=== PATIENT | male | born 1970 | race Asian ===

== ENCOUNTER 2017-01-02 17:37 | Emergency (ER) | payer OTHER ==
[~2017-01-02] VITALS: Ht 157.5 cm; Wt 56.0 kg
[~2017-01-02 17:37] MED LIST: ATOR20TA65 PO; CALC667C PO; HYDR-902 PO; POTA-57 PO; SENN-53 PO; SPIR25TA PO; ZOLP5TAB PO; [UNRECOGNIZED DRUG - CODE] PO
[2017-01-02 17:44] VITALS: Ht 157.5 cm; Wt 56.0 kg
[2017-01-02 19:58] LABS: ADD SCAN DIFF NO
[2017-01-02 20:06] LABS: ABNORMAL IP MESSAGE 1; HEMOGLOBIN 14.3 g/dl (14.0-18.0); MEAN CORPUSCULAR HEMOGLOBIN 27.4 pg (29.0-33.0); MEAN CORPUSCULAR HGB CONC 32.5 g/dl (32.0-37.0); MEAN CORPUSCULAR VOLUME 84.3 fl (82.0-101.0); MEAN PLATELET VOLUME 9.2 fl (7.4-10.4); PLATELET COUNT 379 10^3/UL (140-415); RED BLOOD COUNT 5.22 10^6/ul (4.70-6.10); RED CELL DISTRIBUTION WIDTH 14.4 % (11.5-14.5)
[2017-01-02 20:20] LABS: INR 0.87; PARTIAL THROMBOPLASTIN TIME 34.4 Sec (25.0-35.0); PROTIME 11.8 Sec (12.2-14.2); PT RATIO 0.9
[2017-01-02 20:24] LABS: ANION GAP 8 (8-16); BLOOD UREA NITROGEN 53 mg/dl (7-20); CALCIUM 7.8 mg/dl (8.4-10.2); CARBON DIOXIDE 26 mmol/L (21-31); CHLORIDE 103 mmol/L (97-110); CREATININE 2.95 mg/dl (0.61-1.24); GLUCOSE 92 mg/dl (70-220); POTASSIUM 3.9 mmol/L (3.5-5.1); SODIUM 133 mmol/L (135-144)
--- NOTE | 2017-01-02 20:25 | RADRPT ---
PROCEDURE: XR Chest. CLINICAL INDICATION: 46-year-old male with chest pain. TECHNIQUE: Single frontal view of the chest was obtained. COMPARISON: None FINDINGS: The soft tissues are normal. The bony elements are normal. The heart, cardiomediastinal silhouette and hilar structures are normal. The pulmonary vasculature is normal. There is a left-sided aorta. The lungs are clear. The costophrenic angles are normal. IMPRESSION: 1. Normal chest x-ray. RPTAT:AAJJ Physician Isai Date Time Electronically viewed and signed by Physician Isai on 01/02/2017 20:25 ELAINA/
[2017-01-02 20:33] LABS: B-TYPE NATRIURETIC PEPTIDE 169 PG/ML (0-125)
[2017-01-02 20:39] LABS: TROPONIN-I < 0.012 ng/ml (0.00-0.12)
[2017-01-02 20:52] LABS: EOSINOPHILS # 1.7 10^3/ul (0.0-0.5); LYMPHOCYTES # 2.3 10^3/ul (0.8-2.9); MONOCYTE # 0.6 10^3/ul (0.3-0.9); NEUTROPHIL # 5.4 10^3/ul (1.6-7.5)
[2017-01-02] MEDS ORDERED: RANI150T5 PO (20:58)
[2017-01-02] MEDS ORDERED: DOCU100C26 PO (20:59)
[2017-01-02] MEDS ORDERED: MAGN400O4 PO (20:59)
[2017-01-02] MEDS ORDERED: FUROSEMIDE 40 MG INJ IV ONE (21:00)
--- NOTE | 2017-01-02 21:14 | ERD ---
ER Documentation Chief Complaint Date/Time DATE: 01/02/17 TIME: 21:13 Chief Complaint SOB TODAY, LEG SWELLING X 2 WEEKS HPI This is a 46-year-old male with a history of renal insufficiency who presents to the emergency room for evaluation of swelling in his legs. The patient states that his swelling has progressively gotten worse over the past 2 weeks. He states that he also has mild shortness of breath which is worse when he lays flat. He denies any chest pain. The patient came to the emergency room for further evaluation. ROS All systems reviewed and are negative except as per history of present illness. Medications Home Meds Reported Medications Magnesium Hydroxide* (Milk Of Magnesia*) 400 Mg/5 Ml Oral.susp, 30 ML PO BID Y for PRN, ML 01/02/17 Docusate Sodium* (Doc-Q-Lace*) 100 Mg Capsule, 100 MG PO DAILY, CAP 01/02/17 Ranitidine Hcl* (Ranitidine Hcl*) 150 Mg Tablet, 150 MG PO Q12, #60 TAB 01/02/17 Discontinued Scripts Zolpidem Tartrate* (Ambien*) 5 Mg Tablet, 5 MG PO HS Y for INSOMNIA, #15 TAB Prov:LISA HATFIELDC 06/29/16 Hydrocodone/Acetaminophen ([place] 10-325 Tablet) 1 Each Tablet, 1 TAB PO Q6H Y for PAIN, #20 TAB Prov:LISA HATFIELD PA-C 06/29/16 Sennosides* (Senna Lax*) 8.6 Mg Tablet, 1 TAB PO DAILY, #60 TAB Prov:EDWINA PILLAI 06/03/16 Spironolactone* (Aldactone*) 25 Mg Tablet, 25 MG PO DAILY for 30 Days, TAB Prov:REGIDOEDWINA Aguirre 06/03/16 Potassium Chloride* (Klor-Con*) 20 Meq Tabsr, 20 MEQ PO DAILY for 30 Days, TAB Prov:REGEDWINA DANIELLE 06/03/16 Calcium Acetate* (Calcium Acetate*) 667 Mg Capsule, 667 MG PO WITH MEALS for 30 Days, CAP Prov:REGIDOREDWINA 06/03/16 Atorvastatin Calcium (Atorvastatin Calcium) 20 Mg Tablet, 20 MG PO HS for 30 Days, TAB Prov:REGEDWINA DANIELLE 12/5/16 Metolazone* (Zaroxolyn*) 2.5 Mg Tab, 2.5 MG PO DAILY for 30 Days, TAB Prov:EDWINA PILLAI 06/03/16 Allergies Allergies: Coded Allergies: No Known Allergy (Unverified , 01/02/17) PMhx/Soc History of Surgery: No Anesthesia Reaction: No Hx Neurological Disorder: No Hx Respiratory Disorders: No Hx Cardiac Disorders: No Hx Psychiatric Problems: No Hx Miscellaneous Medical Probl: Yes (CHRONIC RENAL FAILURE) Hx Alcohol Use: No Hx Substance Use: No Hx Tobacco Use: No Smoking Status: Never smoker Physical Exam Vitals Vital Signs Date Time Temp Pulse Resp B/P Pulse Ox O2 Delivery O2 Flow Rate FiO2 01/02/17 17:44 98.1 96 20 143/99 99 Physical Exam INITIAL VITAL SIGNS: Reviewed by me GENERAL: The patient is well developed and appropriate for usual state of health in no apparent distress HEENT: Pupils equal, round, and reactive to light. EOMI. There is no scleral icterus. NECK: C-spine is soft and supple, there is no meningismus. There is no cervical lymphadenopathy. LUNGS: Clear to auscultation bilaterally. There are no rales, wheezes or rhonchi. HEART: Regular rate and rhythm, no murmurs, clicks, rubs or gallops. ABDOMEN: Soft, non-tender, non-distended. There are bowel sounds in all four quadrants. No rebound or guarding. EXTREMITIES: 2+ pitting edema to bilateral lower extremities NEUROLOGICAL: The patient moves all four extremities with 5/5 strength. Cranial nerves II - XII are intact. Normal gait. Alert and oriented SKIN: There is no apparent rash or petechiae. HEME/LYMPHATIC: There is no evidence of excessive bruising or lymphedema. PSYCHIATRIC: The patient does not appear anxious or depressed. Result Diagram: 01/02/17195101/02/171951 Results 24 hrs Laboratory Tests Test 01/02/17 19:52 White Blood Count 10.010^3/ul Red Blood Count 5.2210^6/ul Hemoglobin 14.3g/dl Hematocrit 44.0% Mean Corpuscular Volume 84.3fl Mean Corpuscular Hemoglobin 27.4pg Mean Corpuscular Hemoglobin Concent 32.5g/dl Red Cell Distribution Width 14.4% Platelet Count 33689^3/UL Mean Platelet Volume 9.2fl Neutrophils % 54.0% Lymphocytes % 23.0% Monocytes % 6.0% Eosinophils % 17.0% Neutrophils # 5.410^3/ul Lymphocytes # 2.310^3/ul Monocytes # 0.610^3/ul Eosinophils # 1.710^3/ul Prothrombin Time 11.8Sec Prothrombin Time Ratio 0.9 INR International Normalized Ratio 0.87 Activated Partial Thromboplast Time 34.4Sec Sodium Level 133mmol/L Potassium Level 3.9mmol/L Chloride Level 103mmol/L Carbon Dioxide Level 26mmol/L Anion Gap 8 Blood Urea Nitrogen 53mg/dl Creatinine 2.95mg/dl Glucose Level 92mg/dl Calcium Level 7.8mg/dl Troponin I < 0.012ng/ml B-Type Natriuretic Peptide 169PG/ML Current Medications Medications (Trade) Dose Ordered Sig/Nate Route PRN Reason Start Time Stop Time Status Last Admin Dose Admin Furosemide (Lasix) 40 mg ONCE ONCE IV 01/02/17 21:00 01/02/17 21:01 DC 01/02/17 20:55 Procedures/MDM EKG: Rate/Rhythm: [Normal Sinus Rhythm] QRS, ST, T-waves: [No changes consistent w/ acute ischemia] Impression: [No evidence of ischemia or arrhythmia] Chest X-ray 1V Interpreted by me: Soft Tissue: No acute abnormalities Bones: No acute abnormalities Mediastinum/Cardiac Silhouette/Lungs: [No acute abnormalities] This 46-year-old male presents to the emergency room for evaluation of swelling in the bilateral lower extremities. When I evaluated this patient I did note 2 + pitting edema. The patient does have a history of renal insufficiency. He is on Lasix medication. I did obtain lab work including a chest x-ray which is clear. This patient has no respiratory distress at this time. He was given 40 mg of Lasix IV. The patient will be discharged at this time with a prescription for 20 more grams of Lasix to take daily and to follow-up with his primary care physician. Departure Diagnosis: Primary Impression: Peripheral edema Additional Impression: Renal insufficiency Condition: Stable SANTA RUIZ DO Jan 02, 2017 21:14
[2017-01-02] MEDS ORDERED: FURO-110 PO (21:15)
[2017-01-02 21:25] VITALS: BP 130/100; PULSE 83; RESP 18; TEMP 98
== END 2017-01-02 21:37 | disposition home or self-care (01) ==
LOC: E/R 17:37
DX: R60.0 Localized edema (principal); N18.9 Chronic kidney disease, unspecified
CPT/HCPCS: 36415; 71010; 80048; 83880; 84484; 85025; 85610; 85730; 93005; 96374; J1940; Z7502

== ENCOUNTER 2017-01-07 01:40 | Inpatient (IN) | payer OTHER ==
[~2017-01-07] VITALS: Ht 162.6 cm; Wt 61.4 kg
[2017-01-07] VITALS (10 sets, daily range): BP systolic 113–136; BP diastolic 88–97; PULSE 75–86; RESP 16–19; Ht 162.6 cm; Wt 61.4 kg
[~2017-01-07 01:40] MED LIST changes: -ATOR20TA65 PO; -CALC667C PO; +DOCU100C26 PO; +FURO-110 PO; -HYDR-902 PO; +MAGN400O4 PO; -POTA-57 PO; +RANI150T5 PO; -SENN-53 PO; -SPIR25TA PO; -ZOLP5TAB PO; -[UNRECOGNIZED DRUG - CODE] PO
[2017-01-07] MEDS ORDERED: MAGNESIUM HYDROXIDE 30ML CUP PO PRN (05:30)
[2017-01-07] MEDS ORDERED: FUROSEMIDE 20 MG TAB PO SCH (06:00)
[2017-01-07] MEDS ORDERED: ACETAMINOPHEN 325 MG TAB PO PRN (07:00)
[2017-01-07 07:56] LABS: ADD SCAN DIFF NO
[2017-01-07 08:11] LABS: ABNORMAL IP MESSAGE 1; BASOPHIL # 0.1 10^3/ul (0.0-0.1); BASOPHILS % 0.6 % (0.0-2.0); EOSINOPHILS # 2.5 10^3/ul (0.0-0.5); EOSINOPHILS % 26.9 % (0.0-7.0); HEMATOCRIT 40.9 % (42.0-52.0); HEMOGLOBIN 13.1 g/dl (14.0-18.0); LYMPHOCYTES # 2.4 10^3/ul (0.8-2.9); LYMPHOCYTES % 25.2 % (15.0-51.0); MEAN CORPUSCULAR HEMOGLOBIN 27.2 pg (29.0-33.0); MEAN CORPUSCULAR VOLUME 84.9 fl (82.0-101.0); MEAN PLATELET VOLUME 9.2 fl (7.4-10.4); MONOCYTE # 0.5 10^3/ul (0.3-0.9); MONOCYTES % 5.1 % (0.0-11.0); NEUTROPHIL # 3.9 10^3/ul (1.6-7.5); NEUTROPHILS % 41.9 % (39.0-77.0); PLATELET COUNT 377 10^3/UL (140-415); RED BLOOD COUNT 4.82 10^6/ul (4.70-6.10); RED CELL DISTRIBUTION WIDTH 14.8 % (11.5-14.5); WHITE BLOOD COUNT 9.4 10^3/ul (4.8-10.8)
[2017-01-07 08:27] LABS: ALBUMIN 2.1 g/dl (3.3-4.9); CALCIUM 7.8 mg/dl (8.4-10.2); CREATININE 3.01 mg/dl (0.61-1.24); PHOSPHORUS 6.2 mg/dl (2.5-4.9); POTASSIUM 3.2 mmol/L (3.5-5.1)
[2017-01-07 08:28] LABS: INR 0.86; PROTIME 11.7 Sec (12.2-14.2); PT RATIO 0.9
[2017-01-07 08:29] LABS: PARTIAL THROMBOPLASTIN TIME 34.7 Sec (25.0-35.0)
[2017-01-07] MEDS: FUROSEMIDE 40 MG INJ IV SCH ×2 (08:44→18:43)
[2017-01-07] MEDS: RANITIDINE 150 MG TAB PO SCH ×2 (08:44→20:36)
[2017-01-07] MEDS: DOCUSATE SODIUM 100 MG CAP PO SCH (08:44)
--- NOTE | 2017-01-07 09:11 | RADRPT ---
PROCEDURE: Retroperitoneal ultrasound. CLINICAL INDICATION: Acute renal failure TECHNIQUE: Burnette scale and color doppler ultrasound images of the retroperitoneum, kidneys, urinary bladder COMPARISON: Abdominal ultrasound 06/29/2016 FINDINGS: Right kidney 11.4 cm in length. Right renal cortical thickness is preserved. Left kidney 13.1 cm in length. Left renal cortical thickness is preserved. Echogenicity is upper limits of normal bilaterally. No hydronephrosis. Previously seen right sided calculus is not identified on the current examination. 4.4 cm cyst in the upper pole of the left kidney. Bladder: No focal lesions. Partially visualized ascites and left pleural effusion. IMPRESSION: No evidence of hydronephrosis. 4.4 cm left renal cyst, otherwise normal appearance of both kidneys. RPTAT: AADD .Chuck Robins MD, MD Date Time Electronically viewed and signed by .Chuck Robins MD, on 01/07/2017 09:10 .B/
--- NOTE | 2017-01-07 12:28 | QN ---
Documentation Comment H&P dict a/p 1. renal: nephrtoic syndrome with worsening edema, now symptomatic, plan renal biopsy, diuresis DEACON BARRERA MD Jan 07, 2017 12:27
[2017-01-08] VITALS (12 sets, daily range): BP systolic 115–140; BP diastolic 85–102; PULSE 75–87; RESP 18–20
[2017-01-08] MEDS: FUROSEMIDE 40 MG INJ IV SCH (05:50)
[2017-01-08 07:55] LABS: ADD SCAN DIFF NO
[2017-01-08 07:58] LABS: ABNORMAL IP MESSAGE 1; BASOPHIL # 0.1 10^3/ul (0.0-0.1); BASOPHILS % 0.5 % (0.0-2.0); EOSINOPHILS # 2.3 10^3/ul (0.0-0.5); EOSINOPHILS % 24.3 % (0.0-7.0); HEMATOCRIT 43.8 % (42.0-52.0); HEMOGLOBIN 14.1 g/dl (14.0-18.0); LYMPHOCYTES # 2.5 10^3/ul (0.8-2.9); LYMPHOCYTES % 25.9 % (15.0-51.0); MEAN CORPUSCULAR HEMOGLOBIN 27.3 pg (29.0-33.0); MEAN CORPUSCULAR HGB CONC 32.2 g/dl (32.0-37.0); MEAN CORPUSCULAR VOLUME 84.7 fl (82.0-101.0); MONOCYTE # 0.4 10^3/ul (0.3-0.9); NEUTROPHIL # 4.3 10^3/ul (1.6-7.5); PLATELET COUNT 398 10^3/UL (140-415); RED BLOOD COUNT 5.17 10^6/ul (4.70-6.10); RED CELL DISTRIBUTION WIDTH 14.9 % (11.5-14.5); WHITE BLOOD COUNT 9.5 10^3/ul (4.8-10.8)
[2017-01-08 08:23] LABS: CALCIUM 7.8 mg/dl (8.4-10.2); CREATININE 3.1 mg/dl (0.61-1.24); POTASSIUM 3.8 mmol/L (3.5-5.1)
[2017-01-08] MEDS: RANITIDINE 150 MG TAB PO SCH (08:28)
[2017-01-08] MEDS: DOCUSATE SODIUM 100 MG CAP PO SCH (08:28)
[2017-01-08] MEDS ORDERED: ENOXAPARIN 30 MG/0.3 ML SYG SC SCH (09:00)
[2017-01-08] MEDS ORDERED: NACL 0.9% 3 ML SYG IV SCH (12:00)
[2017-01-08] MEDS ORDERED: BISACODYL (EC) 5 MG TAB PO PRN (12:00)
[2017-01-08] MEDS ORDERED: hydrALAzine 20 MG INJ IV PRN (12:00)
[2017-01-08] MEDS ORDERED: ONDANSETRON 4 MG INJ IV PRN (12:00)
[2017-01-08] MEDS ORDERED: morphine 2 MG INJ IV PRN (12:00)
--- NOTE | 2017-01-08 12:13 | PN ---
Date/Time of Note Date/Time of Note DATE: 01/08/17 TIME: 11:51 Assessment/Plan VTE Prophylaxis VTE Prophylaxis Intervention: LMWH Lines/Catheters IV [facility]ter Type (from [facility] Saline Lock Urinary Cath still in place: No Assessment/Plan Assessment/Plan 46-year-old male: 1. Acute on chronic renal failure according to family members, patient has a history of renal insufficiency at least. Nephrology consult pending, renal ultrasound mostly unremarkable Arnold catheter insertion for strict I's and O's as the patient has minimal urine output and complaints of lower abdomen distention Urine analysis and urine studies pending, uric acid level and total CK pending For now I will hold Lasix and await for nephrology evaluation and recommendation Blood pressure is stable 2. Hyponatremia: Improving likely related to hypervolemia and kidney disease. Follow-up nephrology recommendations Prophylaxis: SCDs for DVT prophylaxis, discontinue chemical prophylaxis for now since there is potential kidney biopsy pending, Pepcid for GI prophylaxis Disposition: Nephrology consult pending, okay to downgrade to medical surgical bed Subjective 24 Hr Interval Summary Free Text/Dictation Patient is primarily Arabic speaking, he reports abdominal fullness, Arnold catheter will be ordered Also complains of mild headache. Exam/Review of Systems Vital Signs Vitals Vital Signs Date Time Temp Pulse Resp B/P Pulse Ox O2 Delivery O2 Flow Rate FiO2 01/08/17 11:34 98.4 86 18 115/85 94 Intake and Output 01/07/17 01/07/17 01/08/17 15:00 23:00 07:00 Intake Total 400 ml 480 ml Balance 400 ml 480 ml Exam Constitutional: alert, oriented, well developed Respiratory: clear to auscultation, normal air movement Cardiovascular: nl pulses, regular rate and rhythm Gastrointestinal: other (Mild distention), soft Genitourinary - Male: other (Minimal urine output) Musculoskeletal: swelling (Lower extremity bilateral) Extremities: pitting pedal edema Neurological: 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 II-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 intact, nl mental status, nl speech, nl strength Results Result Diagram: 01/08/17 0712 01/08/17 0712 Results 24 hrs Laboratory Tests Test 01/08/17 07:12 White Blood Count 9.5 Red Blood Count 5.17 Hemoglobin 14.1 Hematocrit 43.8 Mean Corpuscular Volume 84.7 Mean Corpuscular Hemoglobin 27.3 L Mean Corpuscular Hemoglobin Concent 32.2 Red Cell Distribution Width 14.9 H Platelet Count 398 Mean Platelet Volume 9.0 Neutrophils % 45.0 Lymphocytes % 25.9 Monocytes % 4.0 Eosinophils % 24.3 H Basophils % 0.5 Nucleated Red Blood Cells % 0.0 Neutrophils # 4.3 Lymphocytes # 2.5 Monocytes # 0.4 Eosinophils # 2.3 H Basophils # 0.1 Nucleated Red Blood Cells # 0.0 Sodium Level 129 L Potassium Level 3.8 Chloride Level 105 Carbon Dioxide Level 24 Anion Gap 4 L Blood Urea Nitrogen 61 H Creatinine 3.10 H Glucose Level 89 Calcium Level 7.8 L Medications Medications Current Medications Docusate Sodium (Colace) 100 mg DAILY PO Last administered on 01/08/17 08:28; Admin Dose 100 MG; Start 01/07/17 at 09:00 Magnesium Hydroxide (Milk Of Mag) 30 ml BID PRN PO PRN; Start 01/07/17 at 05:30 Ranitidine HCl (Zantac) 150 mg Q12 PO Last administered on 01/08/17 08:28; Admin Dose 150 MG; Start 01/07/17 at 09:00 Acetaminophen (Tylenol Tab) 650 mg Q4H PRN PO PAIN AND OR ELEVATED TEMP; Start 01/07/17 at 07:00 Enoxaparin Sodium (Lovenox) 30 mg DAILY SC Last administered on 01/08/17 08:31 ; Admin Dose 30 MG; Start 01/08/17 at 09:00 Procedures Procedures PROCEDURE: Retroperitoneal ultrasound. CLINICAL INDICATION: Acute renal failure TECHNIQUE: Burnette scale and color doppler ultrasound images of the retroperitoneum, kidneys, urinary bladder COMPARISON: Abdominal ultrasound 06/29/2016 FINDINGS: Right kidney 11.4 cm in length. Right renal cortical thickness is preserved. Left kidney 13.1 cm in length. Left renal cortical thickness is preserved. Echogenicity is upper limits of normal bilaterally. No hydronephrosis. Previously seen right sided calculus is not identified on the current examination. 4.4 cm cyst in the upper pole of the left kidney. Bladder: No focal lesions. Partially visualized ascites and left pleural effusion. IMPRESSION: No evidence of hydronephrosis. 4.4 cm left renal cyst, otherwise normal appearance of both kidneys. RPTAT: AADD .Chuck Robins MD, Date Time Electronically viewed and signed by .Chuck Robins MD, on 01/07/2017 09:10 GUICHO HERRMANN Jan 08, 2017 12:01
[2017-01-08 12:39] LABS: ADD UMIC YES; UR ASCORBIC ACID NEGATIVE (NEGATIVE); UR BACTERIA FEW /HPF (NONE SEEN); UR BILIRUBIN (Dip) NEGATIVE (NEGATIVE); UR BLOOD (Dip) NEGATIVE (NEGATIVE); UR CLARITY SLIGHTLY CLOUDY (CLEAR); UR COLOR YELLOW (YELLOW); UR GLUCOSE (Dip) 3+ mg/dL (NEGATIVE); UR KETONES (Dip) NEGATIVE (NEGATIVE); UR LEUKOCYTE ESTERASE (Dip) NEGATIVE Leu/ul (NEGATIVE); UR MUCUS FEW /HPF (NONE SEEN); UR NITRITE (Dip) NEGATIVE (NEGATIVE); UR RBC 3 /HPF (0-5); UR TOTAL PROTEIN (Dip) 3+ mg/dl (NEGATIVE); UR UROBILINOGEN (Dip) NEGATIVE (NEGATIVE)
--- NOTE | 2017-01-08 12:57 | RADRPT ---
PROCEDURE: US Lower extremity venous, bilateral CLINICAL INDICATION: lower ext edema, TECHNIQUE: Multiple sonographic images of the bilateral lower extremity deep venous system was ob tained utilizing grayscale, color-flow, compressive sonography and doppler imaging with augmentation . The images were reviewed on a PACS workstation. COMPARISON: None. FINDINGS: There is normal compressibility and flow within the bilateral common femoral, superficial femoral , posterior tibial, peroneal and popliteal veins. RPTAT: AA IMPRESSION: No sonographic evidence for deep venous thrombosis in bilateral lower extremities. Physician Arcenio Date Time Electronically viewed and signed by Physician Arcenio on 01/08/2017 12:57 RA/
[2017-01-08 13:34] LABS: ALBUMIN 2.4 g/dl (3.3-4.9); BILIRUBIN,INDIRECT 0.2 mg/dl (0-1.1); BILIRUBIN,TOTAL 0.2 mg/dl (0.2-1.3); TOTAL PROTEIN 5.2 g/dl (6.1-8.1)
[2017-01-08 13:35] LABS: URIC ACID 6.6 mg/dl (3.1-7.9)
[2017-01-08 13:46] LABS: CHOL/HDL RATIO 16.8 RATIO
--- NOTE | 2017-01-08 14:44 | CONS ---
Date/Time of Note Date/Time of Note DATE: 01/08/17 TIME: 14:40 Assessment/Plan Assessment/Plan Chief Complaint/Hosp Course - CKD - STAR - Nephrotic Proteinuria with edema/anasarca - Hyponatremia PLAN: I discuss with his sister over the phone due to language barrier Apparently he know about his CKD ~ 25 years from [place] No history of Kidney biopsy in the past They are not aware of any protein in the urine AT this point: 1- Agree with renal biopsy 2- Start BUMEX drip + Albumin injections 3- Check Serum serology 4- Follow up with estimated proteinuria THANK YOU V. MUCH Problems: Consultation Date/Type/Reason Admit Date/Time Jan 07, 2017 at 04:00 Date of Consultation: Jan 08, 2017 Type of Consultation: NEPHROLOGY Reason for Consultation - STAR - CKD - NEPHROTIC SYNDROME Constitutional: no complaints Eyes: no complaints ENT: no complaints Respiratory: no complaints Gastrointestinal: no complaints Musculoskeletal: back pain Past Medical History Medical History: no pertinent history, hypertension, renal disease Past Surgical History Past Surgical Hx: no surgical history Family History Significant Family History: no pertinent family hx Social History Alcohol Use: none Smoking Status: Never smoker Drug Use: none Exam/Review of Systems Vital Signs Vitals Vital Signs Date Time Temp Pulse Resp B/P Pulse Ox O2 Delivery O2 Flow Rate FiO2 01/08/17 12:24 87 01/08/17 11:34 98.4 18 115/85 94 Intake and Output 01/07/17 01/07/17 01/08/17 15:00 23:00 07:00 Intake Total 400 ml 480 ml Balance 400 ml 480 ml Exam Constitutional: alert, oriented Psych: no complaints Head: normocephalic Eyes: nl conjunctiva ENMT: nl external ears & nose Neck: supple Respiratory: crackles/rales Cardiovascular: edema, regular rate and rhythm, systolic murmur Gastrointestinal: soft Results Result Diagram: 01/08/17 0712 01/08/17 0712 Results 24 hrs Laboratory Tests Test 01/08/17 02:00 01/08/17 07:12 Urine Color YELLOW Urine Clarity SLIGHTLY CLOUDY A Urine pH 6.0 Urine Specific [place] 1.020 Urine Ketones NEGATIVE Urine Nitrite NEGATIVE Urine Bilirubin NEGATIVE Urine Urobilinogen NEGATIVE Urine Leukocyte Esterase NEGATIVE Urine Microscopic RBC 3 Urine Microscopic WBC 11 H Urine Bacteria FEW A Urine Mucus FEW A Urine Eosinophils % 11.0 H Urine Hemoglobin NEGATIVE Urine Random Creatinine 89.23 Urine Random Sodium 16 L Urine Glucose 3+ H Urine Total Protein 3+ H White Blood Count 9.5 Red Blood Count 5.17 Hemoglobin 14.1 Hematocrit 43.8 Mean Corpuscular Volume 84.7 Mean Corpuscular Hemoglobin 27.3 L Mean Corpuscular Hemoglobin Concent 32.2 Red Cell Distribution Width 14.9 H Platelet Count 398 Mean Platelet Volume 9.0 Neutrophils % 45.0 Lymphocytes % 25.9 Monocytes % 4.0 Eosinophils % 24.3 H Basophils % 0.5 Nucleated Red Blood Cells % 0.0 Neutrophils # 4.3 Lymphocytes # 2.5 Monocytes # 0.4 Eosinophils # 2.3 H Basophils # 0.1 Nucleated Red Blood Cells # 0.0 Sodium Level 129 L Potassium Level 3.8 Chloride Level 105 Carbon Dioxide Level 24 Anion Gap 4 L Blood Urea Nitrogen 61 H Creatinine 3.10 H Glucose Level 89 Uric Acid 6.6 Calcium Level 7.8 L Total Bilirubin 0.2 Direct Bilirubin 0.00 Indirect Bilirubin 0.2 Aspartate Amino Transf (AST/SGOT) 77 H Alanine Aminotransferase (ALT/SGPT) 89 H Alkaline Phosphatase 82 Creatine Kinase 181 Total Protein 5.2 L Albumin 2.4 L Triglycerides Level 504 H Cholesterol Level 640 H LDL Cholesterol, Calculated 501 HDL Cholesterol 38 Cholesterol/HDL Ratio 16.8 Medications Medications Current Medications Docusate Sodium (Colace) 100 mg DAILY PO Last administered on 01/08/17t 08:28; Admin Dose 100 MG; Start 01/07/17 at 09:00 Magnesium Hydroxide (Milk Of Mag) 30 ml BID PRN PO PRN; Start 01/07/17 at 05:30 Acetaminophen (Tylenol Tab) 650 mg Q4H PRN PO PAIN AND OR ELEVATED TEMP; Start 01/07/17 at 07:00 Ondansetron HCl (Zofran Inj) 4 mg Q6H PRN IV NAUSEA AND/OR VOMITING; Start 06/15 at 12:00 Morphine Sulfate (morphine) 2 mg Q4H PRN IV SEVERE PAIN LEVEL 7-10; Start 01/08 at 12:00 Bisacodyl (Dulcolax) 5 mg DAILY PRN PO CONSTIPATION; Start 01/08/17 at 12:00 Famotidine (Pepcid) 20 mg HS PO ; Start 01/08/17 at 21:00 Hydralazine HCl (Apresoline) 10 mg Q8H PRN IV ELEVATED BLOOD PRESSURE; Start at 12:00 ALEXANDRA PERALTA MD Jan 08, 2017 14:44
[2017-01-08] MEDS: ALBUMIN HUMAN 25% 50 ML IV SCH ×2 (15:33→23:00)
[2017-01-08] MEDS: BUMETANIDE 25 MG in DEXTROSE 5% 150 ML IV SCH (16:49)
[2017-01-08 17:12] LABS: HAAIG REFLEX REFLEX FILED
[2017-01-08 17:48] LABS: COMPLEMENT C3 84 mg/dl (88-165); COMPLEMENT C4 44 mg/dl (14-44)
[2017-01-08 18:19] LABS: PROTEIN URINE > 600.0 mg/dl (0.0-11.9)
[2017-01-08 20:50] LABS: HEPATITIS B CORE ANTIBODY REACTIVE (NEGATIVE)
[2017-01-08] MEDS: FAMOTIDINE 20 MG TAB PO SCH (21:59)
[2017-01-09] VITALS (15 sets, daily range): BP systolic 122–146; BP diastolic 78–98; PULSE 75–93; RESP 16–20
[2017-01-09] MEDS: ALBUMIN HUMAN 25% 50 ML IV SCH (06:23)
[2017-01-09 07:34] LABS: ADD SCAN DIFF NO
[2017-01-09 07:44] LABS: ABNORMAL IP MESSAGE 1; BASOPHILS % 0.5 % (0.0-2.0); EOSINOPHILS # 2.2 10^3/ul (0.0-0.5); HEMATOCRIT 35.5 % (42.0-52.0); HEMOGLOBIN 11.7 g/dl (14.0-18.0); LYMPHOCYTES # 2.1 10^3/ul (0.8-2.9); LYMPHOCYTES % 26.6 % (15.0-51.0); MEAN CORPUSCULAR HEMOGLOBIN 28.2 pg (29.0-33.0); MEAN CORPUSCULAR VOLUME 85.5 fl (82.0-101.0); MONOCYTE # 0.3 10^3/ul (0.3-0.9); NEUTROPHIL # 3.3 10^3/ul (1.6-7.5); PLATELET COUNT 343 10^3/UL (140-415); RED BLOOD COUNT 4.15 10^6/ul (4.70-6.10); RED CELL DISTRIBUTION WIDTH 14.6 % (11.5-14.5)
[2017-01-09 07:49] LABS: EOSINOPHILS % 27.4 % (0.0-7.0)
[2017-01-09 07:54] LABS: CALCIUM 7.7 mg/dl (8.4-10.2); CREATININE 2.79 mg/dl (0.61-1.24); MAGNESIUM 2.2 mg/dl (1.7-2.5); PHOSPHORUS 5.9 mg/dl (2.5-4.9); POTASSIUM 3.2 mmol/L (3.5-5.1)
[2017-01-09 08:01] LABS: INR 0.91; PROTIME 12.2 Sec (12.2-14.2)
[2017-01-09] MEDS ORDERED: DIPHENHYDRAMINE 50 MG INJ ONE (08:59)
[2017-01-09] MEDS ORDERED: GELATIN 12MM X 7 MM SPONGE ONE (08:59)
[2017-01-09] MEDS ORDERED: LIDOCAINE 1% (MDV) 20 ML INJ ONE (08:59)
[2017-01-09] MEDS ORDERED: MIDAZOLAM 1 MG/ML 2 ML INJ ONE (08:59)
[2017-01-09] MEDS ORDERED: FENTAnyl 50 MCG/ML VIAL ONE (08:59)
[2017-01-09] MEDS ORDERED: POTASSIUM CHLORIDE (SR) 20 MEQ TAB PO STA (09:17)
--- NOTE | 2017-01-09 09:17 | PN ---
Date/Time of Note Date/Time of Note DATE: 01/09/17 TIME: 09:07 Assessment/Plan VTE Prophylaxis VTE Prophylaxis Intervention: SCD's Lines/Catheters IV [facility] Saline Lock Urinary Cath still in place: No Assessment/Plan Assessment/Plan 46-year-old male: 1. Acute on chronic renal failure according to family members, patient has a history of renal insufficiency at least. Likely nephrotic syndrome Nephrology consult pending, renal ultrasound mostly unremarkable Unable to insert Arnold catheter but no urinary retention, Appreciate recs from Nephrology, on Bumex gtt, strict I's and O's, replete K Urine analysis and urine studies pending, uric acid level and total CK pending Kidney bx this AM 2. Hyponatremia: likely related to hypervolemia and kidney disease. Monitor while on Diuresis Follow-up further nephrology recommendations 3. Hyperlipidemia: start Lipitor Prophylaxis: SCDs for DVT prophylaxis, discontinue chemical prophylaxis for now since there is potential kidney biopsy pending, Pepcid for GI prophylaxis Disposition: Kidney biopsy today, stay on Tele as requiring Bumex gtt. Subjective 24 Hr Interval Summary Free Text/Dictation patient doing OK No complaints this AM, going for kidney biopsy this AM On Bumex gtt with some diuresis Exam/Review of Systems Vital Signs Vitals Vital Signs Date Time Temp Pulse Resp B/P Pulse Ox O2 Delivery O2 Flow Rate FiO2 01/09/17 08:28 84 01/09/17 07:47 98.1 18 122/78 97 Intake and Output 01/08/17 01/08/17 01/09/17 15:00 23:00 07:00 Intake Total 720 ml Balance 720 ml Exam Constitutional: alert, oriented, well developed Respiratory: clear to auscultation, normal air movement Cardiovascular: nl pulses, regular rate and rhythm Gastrointestinal: non-tender, soft Musculoskeletal: swelling Extremities: normal pulses, other (diffuse anasarca ) 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, nl mental status, nl speech, nl strength Results Result Diagram: 01/09/1770401/09/17704 Results 24 hrs Laboratory Tests Test 01/08/17 16:31 01/09/17 07:05 Complement C3 84 L Complement C4 44 Hepatitis B Surface Antigen NEGATIVE Hepatitis B Core Total Antibody REACTIVE H Hepatitis C Antibody NEGATIVE White Blood Count 8.0 Red Blood Count 4.15 L Hemoglobin 11.7 L Hematocrit 35.5 L Mean Corpuscular Volume 85.5 Mean Corpuscular Hemoglobin 28.2 L Mean Corpuscular Hemoglobin Concent 33.0 Red Cell Distribution Width 14.6 H Platelet Count 343 Mean Platelet Volume 9.0 Neutrophils % 41.0 Lymphocytes % 26.6 Monocytes % 4.0 Eosinophils % 27.4 H Basophils % 0.5 Nucleated Red Blood Cells % 0.0 Neutrophils # 3.3 Lymphocytes # 2.1 Monocytes # 0.3 Eosinophils # 2.2 H Basophils # 0.0 Nucleated Red Blood Cells # 0.0 Prothrombin Time 12.2 Prothrombin Time Ratio 1.0 INR International Normalized Ratio 0.91 Activated Partial Thromboplast Time 38.0 H Sodium Level 126 L Potassium Level 3.2 L Chloride Level 104 Carbon Dioxide Level 25 Anion Gap 0 L Blood Urea Nitrogen 58 H Creatinine 2.79 H Glucose Level 79 Calcium Level 7.7 L Phosphorus Level 5.9 H Magnesium Level 2.2 Medications Medications Current Medications Docusate Sodium (Colace) 100 mg DAILY PO Last administered on 01/08/17 08:28; Admin Dose 100 MG; Start 01/07/17 at 09:00 Magnesium Hydroxide (Milk Of Mag) 30 ml BID PRN PO PRN; Start 01/07/17 at 05:30 Acetaminophen (Tylenol Tab) 650 mg Q4H PRN PO PAIN AND OR ELEVATED TEMP; Start 01/07/17 at 07:00 Ondansetron HCl (Zofran Inj) 4 mg Q6H PRN IV NAUSEA AND/OR VOMITING; Start 06/15 at 12:00 Morphine Sulfate (morphine) 2 mg Q4H PRN IV SEVERE PAIN LEVEL 7-10; Start 01/08 at 12:00 Bisacodyl (Dulcolax) 5 mg DAILY PRN PO CONSTIPATION; Start 01/08/17 at 12:00 Famotidine (Pepcid) 20 mg HS PO Last administered on 01/08/17 21:59; Admin Dose 20 MG; Start 01/08/17 at 21:00 Hydralazine HCl 10 mg 10 mg Q8H PRN IV ELEVATED BLOOD PRESSURE; Start 01/08/17 at 12:00 Bumetanide/ Dextrose (Bumex/D5W) 250 ml @ 10 mls/hr Q24H IV Last administered on 7/12/17at 16:49; Admin Dose 10 MLS/HR; Start 01/08/17 at 16:30 GUICHO HERRMANN Jan 09, 2017 09:17
--- NOTE | 2017-01-09 10:24 | HP ---
DATE OF ADMISSION: 01/07/2017 CHIEF COMPLAINT: Edema. HISTORY OF PRESENT ILLNESS: Mr. Boss presents to the emergency room at [facility], is transferred to [facility] for insurance reasons with worsening edema, especially of the legs. He states that this is associated with some difficulty with breathing and shortness of breath as well as some abdominal pain. He has known kidney problems and is seeing a supply person whose name he does not recall. He states that he has been working and has been able to work up until the day of his presentation. PAST MEDICAL HISTORY: Significant for renal disease, not otherwise specified. MEDICATIONS: Outpatient include: 1. Lasix 20 mg daily. 2. Colace 100 mg daily. 3. Milk of magnesia. 4. Ranitidine 150 mg b.i.d. ALLERGIES: NO KNOWN DRUG ALLERGIES. SOCIAL HISTORY: Patient lives at home in [facility] with his sister, is independent of activities of daily living. 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 FAMILY HISTORY: Noncontributory. REVIEW OF SYSTEMS: Five systems reviewed and found not to be revealing. PHYSICAL EXAMINATION: VITAL SIGNS: Blood pressure is 123/88, pulse rate 78, respirations 16, temperature is 98.3. He is satting 99 percent on room air. GENERAL: Pleasant man, in no acute distress. Citizen Of [place] speaking only. HEENT: Normocephalic, atraumatic. Without any scleral icterus, perioral cyanosis. Mucous membranes moist. NECK: Soft and supple, without masses. No jugular venous distention. No carotid bruits. CHEST: Clear to auscultation and percussion bilaterally. HEART: Regular rate and rhythm. S1-S2. No added sounds. ABDOMEN: Soft, nontender, nondistended, without palpable hepatosplenomegaly. EXTREMITIES: Without clubbing or cyanosis. There is modest edema of both legs. SKIN: Without rashes. NEUROLOGIC: Grossly intact. LABORATORY STUDIES: Performed at [facility] reveal a hemoglobin 13.4 g/dL, white count of 8600, platelets of 372,000. Sodium 139, potassium 3.9, chloride 106, bicarbonate 19, BUN 53, creatinine 3.2. Liver function tests notable for AST 44, ALT 68, total bilirubin 0.5, alkaline phosphatase 64, chest x-ray is normal. ASSESSMENT AND PLAN: 1. Renal: Patient with likely nephrotic syndrome and edema secondary to this. 2. Plan to continue diuresis, obtain renal biopsy for final diagnosis, await renal consultation with patient's supply person, Dr. Palmer. Prophylaxis with Lovenox. Dictated By: Bryson Lisa MD /[email or web address] /Document#: [id number]
--- NOTE | 2017-01-09 11:01 | RADRPT ---
PROCEDURE: CT guided left renal biopsy. CLINICAL INDICATION: Medical renal disease. TECHNIQUE: Informed consent was obtained. The procedure, risks, benefits, complications and alternatives were explained to the patient. Risks including bleeding and infection were explained. The patient unders tood and was willing to proceed. A procedural pause was performed. The patient's name, date of cinthia h, and procedure to be performed were verified. One or more of the following dose reduction techni ques were used: Automated exposure control, adjustment of the mA and/or kV according to patient size , use of iterative reconstruction technique. Using local anesthetic, sterile technique and CT guidance, an 18-gauge automated core biopsy needle was used to biopsy the lower pole of the left kidney. Multiple passes were made. Adequate tissue w as obtained according to the pathologist present during the procedure. Multiple Gelfoam pledgets mi xed with normal saline were then embolized through the outer cannula of the biopsy needle into the b iopsy tract while the needle was removed. A postprocedural scan was performed. A dressing was applied. The patient tolerated procedure well. COMPARISON: None. FINDINGS: Initial images demonstrate the tip of the needle at the posterior margin of the lower pole of the le ft kidney. Post biopsy images demonstrate no immediate complication. The Gelfoam is noted in the biopsy tract. IMPRESSION: 1. Successful CT guided biopsy of the left kidney for medical renal disease. RPTAT: QQ .Favian Guillory MD, MD Date Time Electronically viewed and signed by .Favian Guillory MD, on 01/09/2017 11:00 .R/
[2017-01-09] MEDS: DOCUSATE SODIUM 100 MG CAP PO SCH (11:20)
[2017-01-09] MEDS: BUMETANIDE 25 MG in DEXTROSE 5% 150 ML IV SCH (16:30)
[2017-01-09] MEDS: ATORVASTATIN 80 MG TAB PO SCH (21:54)
[2017-01-09] MEDS: FAMOTIDINE 20 MG TAB PO SCH (21:54)
[2017-01-10] VITALS (12 sets, daily range): BP systolic 119–139; BP diastolic 85–103; PULSE 77–85; RESP 16–17
[2017-01-10] MEDS: BUMETANIDE 25 MG in DEXTROSE 5% 150 ML IV SCH (01:01)
[2017-01-10] MEDS ORDERED: POTASSIUM CHLORIDE (SR) 20 MEQ TAB PO STA (08:20)
--- NOTE | 2017-01-10 08:28 | CONS ---
Date/Time of Note Date/Time of Note DATE: 01/10/17 TIME: 08:21 Assessment/Plan Assessment/Plan Chief Complaint/Hosp Course - CKD - STAR - Nephrotic Proteinuria with edema/anasarca - Hyponatremia PLAN: Post Renal Biopsy Tolerated well Responding well to BUMEX drip with improving edema - Continue with Bumex drip - Renew Albumin IV x 3 more doses - CEE, ANCA panel, Hep. Panel, Complements are pending at this point - Replace Potassium PO - Hopefully would like to start low dose ACEi once euvolemic or close to it - Dietitian evaluation & teaching for a 70 Gram protein restriction diet teaching - Follow up on Phos. & PTH Problems: Consultation Date/Type/Reason Admit Date/Time Jan 07, 2017 at 04:00 Initial Consult Date 01/08/17 Type of Consultation: NEPHROLOGY Reason for Consultation - STAR - CKD - Proteinuria 24 HR Interval Summary Constitutional: improved, no complaints Exam/Review of Systems Vital Signs Vitals Vital Signs Date Time Temp Pulse Resp B/P Pulse Ox O2 Delivery O2 Flow Rate FiO2 01/10/17 08:12 98.1 82 17 119/87 98 01/09/17 11:00 Nasal Cannula 2 Intake and Output 01/09/17 01/09/17 01/10/17 15:00 23:00 07:00 Intake Total 600 ml 420 ml Output Total 1550 ml 950 ml Balance -950 ml -530 ml Exam Constitutional: alert, oriented Psych: no complaints Head: normocephalic Respiratory: crackles/rales Cardiovascular: edema, regular rate and rhythm, systolic murmur Gastrointestinal: soft Results Result Diagram: 01/09/1770401/09/17704 Medications Medications Current Medications Docusate Sodium (Colace) 100 mg DAILY PO Last administered on 01/09/17t 11:20; Admin Dose 100 MG; Start 01/07/17 at 09:00 Magnesium Hydroxide (Milk Of Mag) 30 ml BID PRN PO PRN; Start 01/07/17 at 05:30 Acetaminophen (Tylenol Tab) 650 mg Q4H PRN PO PAIN AND OR ELEVATED TEMP; Start 01/07/17 at 07:00 Ondansetron HCl (Zofran Inj) 4 mg Q6H PRN IV NAUSEA AND/OR VOMITING; Start 06/15 at 12:00 Morphine Sulfate (morphine) 2 mg Q4H PRN IV SEVERE PAIN LEVEL 7-10 Last administered on 01/09/17 11:25; Admin Dose 2 MG; Start 01/08/17 at 12:00 Bisacodyl (Dulcolax) 5 mg DAILY PRN PO CONSTIPATION; Start 01/08/17 at 12:00 Famotidine (Pepcid) 20 mg HS PO Last administered on 01/09/17 21:54; Admin Dose 20 MG; Start 01/08/17 at 21:00 Hydralazine HCl 10 mg 10 mg Q8H PRN IV ELEVATED BLOOD PRESSURE; Start 01/08/17 at 12:00 Bumetanide/ Dextrose (Bumex/D5W) 250 ml @ 10 mls/hr Q24H IV Last administered on 01/10/17 01:01; Admin Dose 10 MLS/HR; Start 01/08/17 at 16:30 Atorvastatin Calcium (Lipitor) 80 mg HS PO Last administered on 01/09/17 21:54 ; Admin Dose 80 MG; Start 01/09/17 at 21:00 ALEXANDRA PERALTA MD Jan 10, 2017 08:27
[2017-01-10 08:36] LABS: ADD SCAN DIFF NO
[2017-01-10 08:43] LABS: ABNORMAL IP MESSAGE 1; BASOPHILS % 0.4 % (0.0-2.0); EOSINOPHILS # 2.1 10^3/ul (0.0-0.5); EOSINOPHILS % 23.4 % (0.0-7.0); HEMATOCRIT 38.8 % (42.0-52.0); HEMOGLOBIN 12.6 g/dl (14.0-18.0); LYMPHOCYTES # 2.1 10^3/ul (0.8-2.9); LYMPHOCYTES % 23.6 % (15.0-51.0); MEAN CORPUSCULAR HEMOGLOBIN 27.8 pg (29.0-33.0); MEAN CORPUSCULAR HGB CONC 32.5 g/dl (32.0-37.0); MEAN CORPUSCULAR VOLUME 85.5 fl (82.0-101.0); MEAN PLATELET VOLUME 9.2 fl (7.4-10.4); MONOCYTE # 0.5 10^3/ul (0.3-0.9); NEUTROPHIL # 4.3 10^3/ul (1.6-7.5); NEUTROPHILS % 47.4 % (39.0-77.0); PLATELET COUNT 360 10^3/UL (140-415); RED BLOOD COUNT 4.54 10^6/ul (4.70-6.10); RED CELL DISTRIBUTION WIDTH 14.6 % (11.5-14.5); WHITE BLOOD COUNT 9.1 10^3/ul (4.8-10.8)
[2017-01-10] MEDS: DOCUSATE SODIUM 100 MG CAP PO SCH (08:47)
[2017-01-10] MEDS: ALBUMIN HUMAN 25% 50 ML IV SCH ×3 (08:49→23:42)
[2017-01-10 09:20] LABS: ALBUMIN 2.3 g/dl (3.3-4.9); ALBUMIN/GLOBULIN RATIO 0.92; BILIRUBIN,INDIRECT 0.4 mg/dl (0-1.1); BILIRUBIN,TOTAL 0.4 mg/dl (0.2-1.3); CALCIUM 7.7 mg/dl (8.4-10.2); CREATININE 2.91 mg/dl (0.61-1.24); MAGNESIUM 1.9 mg/dl (1.7-2.5); PHOSPHORUS 6.3 mg/dl (2.5-4.9); POTASSIUM 3.2 mmol/L (3.5-5.1); TOTAL PROTEIN 4.8 g/dl (6.1-8.1)
--- NOTE | 2017-01-10 11:51 | PN ---
Date/Time of Note Date/Time of Note DATE: 01/10/17 TIME: 11:44 Assessment/Plan VTE Prophylaxis VTE Prophylaxis Intervention: SCD's Lines/Catheters [facility] Peripheral IV Urinary Cath still in place: No Assessment/Plan Assessment/Plan 46-year-old male: 1. Acute on chronic renal failure according to family members, patient has a history of renal insufficiency at least. Likely nephrotic syndrome. Appreciate recommendations from Dr. Keyes. 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 Discussed with Dr. Keyes patient to start on prednisone today. Status post second renal biopsy yesterday On Bumex gtt, strict I's and O's, replete K Also started on proton pump inhibitors while on high-dose steroids, also started on baby aspirin 2. Hyponatremia: likely related to hypervolemia and kidney disease. Monitor while on Diuresis Follow-up further nephrology recommendations 3. Hyperlipidemia: On Lipitor Prophylaxis: SCDs for DVT prophylaxis, discontinue chemical prophylaxis for now since there is potential kidney biopsy pending, Pepcid for GI prophylaxis Disposition: Follow-up kidney biopsy results, but seems patient already previously diagnosed a few months ago with FSGN, Tele as requiring Bumex gtt. Subjective 24 Hr Interval Summary Free Text/Dictation Patient feels better, complains of constipation. Lower extremity edema improved however still with significant pedal edema, he is on a Bumex drip. Exam/Review of Systems Vital Signs Vitals Vital Signs Date Time Temp Pulse Resp B/P Pulse Ox O2 Delivery O2 Flow Rate FiO2 01/10/17 08:12 98.1 82 17 119/87 98 01/09/17 11:00 Nasal Cannula 2 Intake and Output 01/09/17 01/09/17 01/10/17 15:00 23:00 07:00 Intake Total 600 ml 420 ml Output Total 1550 ml 950 ml Balance -950 ml -530 ml Exam Constitutional: alert, oriented, well developed Respiratory: clear to auscultation, normal air movement Cardiovascular: nl pulses, regular rate and rhythm Gastrointestinal: non-tender, soft Musculoskeletal: nl extremities to inspection Extremities: normal pulses, other (No clubbing or cyanosis), pitting pedal edema (+ 3 to 4 improving) 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, nl mental status, nl speech, nl strength Results Result Diagram: 01/10/1745 01/10/1745 Results 24 hrs Laboratory Tests Test 01/10/17 07:45 White Blood Count 9.1 Red Blood Count 4.54 L Hemoglobin 12.6 L Hematocrit 38.8 L Mean Corpuscular Volume 85.5 Mean Corpuscular Hemoglobin 27.8 L Mean Corpuscular Hemoglobin Concent 32.5 Red Cell Distribution Width 14.6 H Platelet Count 360 Mean Platelet Volume 9.2 Neutrophils % 47.4 Lymphocytes % 23.6 Monocytes % 5.0 Eosinophils % 23.4 H Basophils % 0.4 Nucleated Red Blood Cells % 0.0 Neutrophils # 4.3 Lymphocytes # 2.1 Monocytes # 0.5 Eosinophils # 2.1 H Basophils # 0.0 Nucleated Red Blood Cells # 0.0 Sodium Level 128 L Potassium Level 3.2 L Chloride Level 103 Carbon Dioxide Level 26 Anion Gap 2 L Blood Urea Nitrogen 56 H Creatinine 2.91 H Glucose Level 91 Calcium Level 7.7 L Phosphorus Level 6.3 H Magnesium Level 1.9 Total Bilirubin 0.4 Direct Bilirubin 0.00 Indirect Bilirubin 0.4 Aspartate Amino Transf (AST/SGOT) 22 Alanine Aminotransferase (ALT/SGPT) 39 Alkaline Phosphatase 59 Total Protein 4.8 L Albumin 2.3 L Globulin 2.50 Albumin/Globulin Ratio 0.92 Medications Medications Current Medications Docusate Sodium (Colace) 100 mg DAILY PO Last administered on 01/10/17 08:47; Admin Dose 100 MG; Start 01/07/17 at 09:00 Magnesium Hydroxide (Milk Of Mag) 30 ml BID PRN PO PRN; Start 01/07/17 at 05:30 Acetaminophen (Tylenol Tab) 650 mg Q4H PRN PO PAIN AND OR ELEVATED TEMP; Start 01/07/17 at 07:00 Ondansetron HCl (Zofran Inj) 4 mg Q6H PRN IV NAUSEA AND/OR VOMITING; Start 06/15 at 12:00 Morphine Sulfate (morphine) 2 mg Q4H PRN IV SEVERE PAIN LEVEL 7-10 Last administered on 01/09/17 11:25; Admin Dose 2 MG; Start 01/08/17 at 12:00 Bisacodyl (Dulcolax) 5 mg DAILY PRN PO CONSTIPATION; Start 01/08/17 at 12:00 Famotidine (Pepcid) 20 mg HS PO Last administered on 01/09/17 21:54; Admin Dose 20 MG; Start 01/08/17 at 21:00 Hydralazine HCl 10 mg 10 mg Q8H PRN IV ELEVATED BLOOD PRESSURE; Start 01/08/17 at 12:00 Bumetanide/ Dextrose (Bumex/D5W) 250 ml @ 10 mls/hr Q24H IV Last administered on 01/10/17 01:01; Admin Dose 10 MLS/HR; Start 01/08/17 at 16:30 Atorvastatin Calcium 80 mg 80 mg HS PO Last administered on 01/09/17 21:54; Admin Dose 80 MG; Start 01/09/17 at 21:00 Albumin Human (Albumin Human 25%) 50 ml @ 100 mls/hr Q8H IV Last administered on 01/10/17 08:49; Admin Dose 100 MLS/HR; Start 01/10/17 at 08:30; Stop at 00:59 GUICHO HERRMANN F Jan 10, 2017 11:51
[2017-01-10] MEDS: CALCIUM ACETATE 667 MG CAP GTB SCH ×2 (11:53→17:29)
[2017-01-10 12:06] LABS: MYELOPEROXIDASE ANTIBODY <1.0 AI; PROTEINASE-3 ANTIBODY <1.0 AI
[2017-01-10] MEDS: predniSONE 20 MG TAB PO SCH (13:02)
[2017-01-10] MEDS: ASPIRIN (EC) 81 MG TAB PO SCH (13:02)
[2017-01-10] MEDS: PANTOPRAZOLE (EC) 40 MG TAB PO SCH (13:02)
[2017-01-10 13:23] LABS: ANA SCREEN NEGATIVE (NEGATIVE)
[2017-01-10] MEDS ORDERED: LASIX IV SCH (18:00)
[2017-01-10] MEDS ORDERED: D5W IV SCH (18:00)
[2017-01-10] MEDS: ATORVASTATIN 80 MG TAB PO SCH (20:53)
[2017-01-11] VITALS (13 sets, daily range): BP systolic 112–135; BP diastolic 73–93; PULSE 74–80; RESP 16–19
[2017-01-11] MEDS: PANTOPRAZOLE (EC) 40 MG TAB PO SCH (05:31)
[2017-01-11] MEDS: DOCUSATE SODIUM 100 MG CAP PO SCH (08:21)
[2017-01-11] MEDS: predniSONE 20 MG TAB PO SCH (08:21)
[2017-01-11] MEDS: CALCIUM ACETATE 667 MG CAP GTB SCH ×3 (08:21→17:09)
[2017-01-11] MEDS: ASPIRIN (EC) 81 MG TAB PO SCH (08:21)
[2017-01-11] MEDS ORDERED: LISINOPRIL 5 MG TAB PO ONE (10:30)
--- NOTE | 2017-01-11 10:31 | CONS ---
Date/Time of Note Date/Time of Note DATE: 01/11/17 TIME: 10:28 Assessment/Plan Assessment/Plan Chief Complaint/Hosp Course - CKD - STAR - Nephrotic Proteinuria with edema/anasarca - Hyponatremia PLAN: Change to PO Diuretics Start Prednisone Start low dose ACEi Recheck labs in AM, If potassium stable & not much worsening in renal function may be able to go home & follow closely as out patient FSGS ( ? cause ) hopefully will have some response to steroids Replace Potassium Problems: Consultation Date/Type/Reason Admit Date/Time Jan 07, 2017 at 04:00 Initial Consult Date 01/08/17 Type of Consultation: NEPHROLOGY Reason for Consultation NEPHROTIC PROTEINURIA CKD 3 / CKD 4 24 HR Interval Summary Constitutional: improved, no complaints Exam/Review of Systems Vital Signs Vitals Vital Signs Date Time Temp Pulse Resp B/P Pulse Ox O2 Delivery O2 Flow Rate FiO2 01/11/17 08:27 98.0 75 18 132/92 99 01/09/17 11:00 Nasal Cannula 2 Intake and Output 01/10/17 01/10/17 01/11/17 15:00 23:00 07:00 Intake Total 900 ml 520 ml Balance 900 ml 520 ml Exam Constitutional: alert, oriented Psych: no complaints Head: normocephalic Respiratory: crackles/rales Cardiovascular: edema, regular rate and rhythm, systolic murmur Gastrointestinal: soft Results Result Diagram: 01/10/17 0745 01/10/17 0745 Medications Medications Current Medications Docusate Sodium (Colace) 100 mg DAILY PO Last administered on 01/11/17 08:21; Admin Dose 100 MG; Start 01/07/17 at 09:00 Magnesium Hydroxide (Milk Of Mag) 30 ml BID PRN PO PRN Last administered on 17:40; Admin Dose 30 ML; Start 01/07/17 at 05:30 Acetaminophen (Tylenol Tab) 650 mg Q4H PRN PO PAIN AND OR ELEVATED TEMP; Start 01/07/17 at 07:00 Ondansetron HCl (Zofran Inj) 4 mg Q6H PRN IV NAUSEA AND/OR VOMITING; Start 06/15 at 12:00 Morphine Sulfate (morphine) 2 mg Q4H PRN IV SEVERE PAIN LEVEL 7-10 Last administered on 01/09/17 11:25; Admin Dose 2 MG; Start 01/08/17 at 12:00 Bisacodyl (Dulcolax) 5 mg DAILY PRN PO CONSTIPATION Last administered on 13:02; Admin Dose 5 MG; Start 01/08/17 at 12:00 Hydralazine HCl (Apresoline) 10 mg Q8H PRN IV ELEVATED BLOOD PRESSURE; Start at 12:00 Atorvastatin Calcium (Lipitor) 80 mg HS PO Last administered on 01/10/17 20:53 ; Admin Dose 80 MG; Start 01/09/17 at 21:00 Prednisone (Prednisone) 60 mg DAILY PO Last administered on 01/11/17 08:21; Admin Dose 60 MG; Start 01/10/17 at 12:00 Aspirin (Halfprin) 81 mg DAILY PO Last administered on 01/11/17 08:21; Admin Dose 81 MG; Start 01/10/17 at 12:00 Pantoprazole 40 mg 40 mg DAILY@06 PO Last administered on 01/11/17 05:31; Admin Dose 40 MG; Start 01/10/17 at 12:00 Furosemide/ Dextrose (Lasix/D5W) 250 ml @ 10 mls/hr Q24H IV Last administered on 01/10/17 18:09; Admin Dose 10 MLS/HR; Start 01/10/17 at 18:00 ALEXANDRA PERALTA MD Jan 11, 2017 10:30
--- NOTE | 2017-01-11 12:01 | PN ---
Date/Time of Note Date/Time of Note DATE: 01/11/17 TIME: 11:55 Assessment/Plan VTE Prophylaxis VTE Prophylaxis Intervention: SCD's Lines/Catheters IV [facility]ter Type (from [facility]): Peripheral IV Urinary Cath still in place: No Assessment/Plan Assessment/Plan 46-year-old male: 1. Acute on chronic renal failure. Appreciate recommendations from Dr. Keyes. 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 Discussed with Dr. Keyes Patient to continue prednisone 60 mg p.o. daily, diuretics, low-dose FRANK inhibitors, with possible discharge planning in the next 24 to 48 hrs. Status post second renal biopsy with pathology to be followed up as an outpatient but likely to show again FSGN Continue proton pump inhibitors while on high-dose steroids, baby aspirin and statins, will also add fenofibrate Follow-up labs this morning for further electrolytes repletion as needed 2. Hyponatremia: likely related to hypervolemia and kidney disease. Monitor while on Diuresis Follow-up further nephrology recommendations 3. Hyperlipidemia: On Lipitor and will also add TriCor Prophylaxis: SCDs for DVT prophylaxis, discontinue chemical prophylaxis for now since there is potential kidney biopsy pending, Pepcid for GI prophylaxis Disposition: Follow-up kidney biopsy results as outpatient. Possible discharge planning tomorrow with outpatient nephrology follow-up and on the current medications the patient is on including high-dose steroids. Subjective 24 Hr Interval Summary Free Text/Dictation Patient remained stable, blood pressure stable on current treatment. Appreciate recommendation from Dr. Keyes, patient diuretics to be switched to oral for possible discharge planning on current regimen in the next 24 hours Exam/Review of Systems Vital Signs Vitals Vital Signs Date Time Temp Pulse Resp B/P Pulse Ox O2 Delivery O2 Flow Rate FiO2 01/11/17 08:27 98.0 75 18 132/92 99 01/09/17 11:00 Nasal Cannula 2 Intake and Output 01/10/17 01/10/17 01/11/17 15:00 23:00 07:00 Intake Total 900 ml 520 ml Balance 900 ml 520 ml Exam Constitutional: alert, oriented, other (Still with pedal edema), well developed Respiratory: clear to auscultation, normal air movement Cardiovascular: nl pulses, regular rate and rhythm Gastrointestinal: non-tender, soft Musculoskeletal: nl extremities to inspection, nl gait and stance Extremities: edema (+1 to 2), normal pulses, other, pitting pedal edema (+3 bilateral) 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, nl mental status, nl speech, nl strength Results Result Diagram: 01/10/17 0745 01/10/17 0745 Medications Medications Current Medications Docusate Sodium (Colace) 100 mg DAILY PO Last administered on 01/11/17 08:21; Admin Dose 100 MG; Start 01/07/17 at 09:00 Magnesium Hydroxide (Milk Of Mag) 30 ml BID PRN PO PRN Last administered on 17:40; Admin Dose 30 ML; Start 01/07/17 at 05:30 Acetaminophen (Tylenol Tab) 650 mg Q4H PRN PO PAIN AND OR ELEVATED TEMP; Start 01/07/17 at 07:00 Ondansetron HCl (Zofran Inj) 4 mg Q6H PRN IV NAUSEA AND/OR VOMITING; Start 06/15 at 12:00 Morphine Sulfate (morphine) 2 mg Q4H PRN IV SEVERE PAIN LEVEL 7-10 Last administered on 01/09/17 11:25; Admin Dose 2 MG; Start 01/08/17 at 12:00 Bisacodyl (Dulcolax) 5 mg DAILY PRN PO CONSTIPATION Last administered on 13:02; Admin Dose 5 MG; Start 01/08/17 at 12:00 Hydralazine HCl (Apresoline) 10 mg Q8H PRN IV ELEVATED BLOOD PRESSURE; Start at 12:00 Atorvastatin Calcium (Lipitor) 80 mg HS PO Last administered on 01/10/17 20:53 ; Admin Dose 80 MG; Start 01/09/17 at 21:00 Prednisone (Prednisone) 60 mg DAILY PO Last administered on 01/11/17 08:21; Admin Dose 60 MG; Start 01/10/17 at 12:00 Aspirin (Halfprin) 81 mg DAILY PO Last administered on 01/11/17 08:21; Admin Dose 81 MG; Start 01/10/17 at 12:00 Pantoprazole (Protonix Tab) 40 mg DAILY@06 PO Last administered on 01/11/17t 05 :31; Admin Dose 40 MG; Start 01/10/17 at 12:00 GUICHO HERRMANN Jan 11, 2017 12:01
[2017-01-11 12:06] LABS: ADD SCAN DIFF NO
[2017-01-11] MEDS: FUROSEMIDE 40 MG TAB PO SCH ×2 (12:17→17:10)
[2017-01-11 12:30] LABS: MAGNESIUM 2.1 mg/dl (1.7-2.5); PHOSPHORUS 4.7 mg/dl (2.5-4.9)
[2017-01-11 12:31] LABS: ALBUMIN 2.4 g/dl (3.3-4.9); ALBUMIN/GLOBULIN RATIO 0.96; BILIRUBIN,INDIRECT 0.5 mg/dl (0-1.1); BILIRUBIN,TOTAL 0.5 mg/dl (0.2-1.3); CALCIUM 7.8 mg/dl (8.4-10.2); CREATININE 2.92 mg/dl (0.61-1.24); POTASSIUM 3.2 mmol/L (3.5-5.1); TOTAL PROTEIN 4.9 g/dl (6.1-8.1)
[2017-01-11 12:32] LABS: BASOPHILS % 0.2 % (0.0-2.0); EOSINOPHILS # 0.3 10^3/ul (0.0-0.5); EOSINOPHILS % 3.5 % (0.0-7.0); HEMATOCRIT 36.9 % (42.0-52.0); HEMOGLOBIN 12.1 g/dl (14.0-18.0); LYMPHOCYTES # 1.4 10^3/ul (0.8-2.9); LYMPHOCYTES % 16.1 % (15.0-51.0); MEAN CORPUSCULAR HEMOGLOBIN 27.8 pg (29.0-33.0); MEAN CORPUSCULAR HGB CONC 32.8 g/dl (32.0-37.0); MEAN CORPUSCULAR VOLUME 84.6 fl (82.0-101.0); MEAN PLATELET VOLUME 8.9 fl (7.4-10.4); MONOCYTE # 0.1 10^3/ul (0.3-0.9); MONOCYTES % 1.1 % (0.0-11.0); NEUTROPHILS % 78.8 % (39.0-77.0); PLATELET COUNT 364 10^3/UL (140-415); RED BLOOD COUNT 4.36 10^6/ul (4.70-6.10); RED CELL DISTRIBUTION WIDTH 14.6 % (11.5-14.5); WHITE BLOOD COUNT 8.9 10^3/ul (4.8-10.8)
[2017-01-11] MEDS: FENOFIBRATE 145 MG TAB PO SCH (13:54)
[2017-01-11] MEDS ORDERED: POTASSIUM CHLORIDE (SR) 20 MEQ TAB PO STA (14:33)
[2017-01-11] MEDS: ATORVASTATIN 80 MG TAB PO SCH (20:27)
[2017-01-12] VITALS (7 sets, daily range): BP systolic 102–131; BP diastolic 60–93; PULSE 71–110; RESP 18–20
[2017-01-12] MEDS: FUROSEMIDE 40 MG TAB PO SCH ×2 (05:34→13:20)
[2017-01-12] MEDS: PANTOPRAZOLE (EC) 40 MG TAB PO SCH (05:34)
[2017-01-12] MEDS: CALCIUM ACETATE 667 MG CAP GTB SCH ×2 (07:47→11:50)
[2017-01-12 08:11] LABS: ADD SCAN DIFF NO
[2017-01-12] MEDS: DOCUSATE SODIUM 100 MG CAP PO SCH (08:21)
[2017-01-12] MEDS: FENOFIBRATE 145 MG TAB PO SCH (08:21)
[2017-01-12] MEDS: ASPIRIN (EC) 81 MG TAB PO SCH (08:21)
[2017-01-12] MEDS: predniSONE 20 MG TAB PO SCH (08:21)
[2017-01-12 08:36] LABS: BASOPHILS % 0.3 % (0.0-2.0); EOSINOPHILS # 0.3 10^3/ul (0.0-0.5); EOSINOPHILS % 2.9 % (0.0-7.0); HEMATOCRIT 39.4 % (42.0-52.0); HEMOGLOBIN 12.7 g/dl (14.0-18.0); LYMPHOCYTES # 2.7 10^3/ul (0.8-2.9); LYMPHOCYTES % 22.8 % (15.0-51.0); MEAN CORPUSCULAR HEMOGLOBIN 27.6 pg (29.0-33.0); MEAN CORPUSCULAR HGB CONC 32.2 g/dl (32.0-37.0); MEAN CORPUSCULAR VOLUME 85.7 fl (82.0-101.0); MONOCYTE # 0.7 10^3/ul (0.3-0.9); MONOCYTES % 5.9 % (0.0-11.0); NEUTROPHIL # 7.9 10^3/ul (1.6-7.5); NEUTROPHILS % 67.7 % (39.0-77.0); PLATELET COUNT 424 10^3/UL (140-415); WHITE BLOOD COUNT 11.7 10^3/ul (4.8-10.8)
[2017-01-12 08:50] LABS: MAGNESIUM 2.1 mg/dl (1.7-2.5); PHOSPHORUS 4.9 mg/dl (2.5-4.9)
[2017-01-12 09:04] LABS: ALBUMIN 2.3 g/dl (3.3-4.9); ALBUMIN/GLOBULIN RATIO 0.92; BILIRUBIN,INDIRECT 0.3 mg/dl (0-1.1); BILIRUBIN,TOTAL 0.3 mg/dl (0.2-1.3); CALCIUM 8.2 mg/dl (8.4-10.2); CREATININE 3.14 mg/dl (0.61-1.24); POTASSIUM 3.5 mmol/L (3.5-5.1); TOTAL PROTEIN 4.8 g/dl (6.1-8.1)
[2017-01-12] MEDS ORDERED: POTASSIUM CHLORIDE (SR) 10 MEQ TAB PO ONE (12:30)
--- NOTE | 2017-01-12 12:55 | PN ---
Date/Time of Note Date/Time of Note DATE: 01/12/17 TIME: 12:16 Assessment/Plan VTE Prophylaxis VTE Prophylaxis Intervention: ambulation, other (on ASA) Lines/Catheters IV [facility]ter Type (from [facility]): Saline Lock Urinary Cath still in place: No Assessment/Plan Assessment/Plan 46-year-old male: 1. Acute on chronic renal failure. Appreciate recommendations from Dr. Keyes. 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 Discussed with Dr. Keyes Patient to continue prednisone 60 mg p.o. daily, diuretics, low-dose FRANK inhibitors, at discharge today planning in the next 24 hrs. Status post second renal biopsy with pathology to be followed up as an outpatient but likely to show again FSGN Continue proton pump inhibitors while on high-dose steroids, baby aspirin and statins + fenofibrate Electrolytes repletion today. 2. Hyponatremia: likely related to hypervolemia and kidney disease. Resolved On Diuresis Follow-up further nephrology recommendations 3. Hyperlipidemia: On Lipitor and TriCor Prophylaxis: SCDs for DVT prophylaxis, discontinue chemical prophylaxis for now since there is potential kidney biopsy pending, Pepcid for GI prophylaxis Disposition: Follow-up kidney biopsy results as outpatient. Discharge home today with outpatient nephrology follow-up and on the current medications the patient is on including high-dose steroids. Follow up with Nephrology in 2 to 3 weeks and also need CMP, Spot urine creatinine and protein in 2 weeks prior to follow up with Nephrology. Subjective 24 Hr Interval Summary Free Text/Dictation Patient doing better today and improved anasarca Discussed with Dr Keyes and OK to d/c home with current meds and follow up with Dr Keyes in 2 weeks with labs also at follow up Exam/Review of Systems Vital Signs Vitals Vital Signs Date Time Temp Pulse Resp B/P Pulse Ox O2 Delivery O2 Flow Rate FiO2 01/12/17 11:52 98.5 83 18 131/93 95 01/09/17 11:00 Nasal Cannula 2 Intake and Output 01/11/17 01/11/17 01/12/17 15:00 23:00 07:00 Intake Total 500 ml Output Total 200 ml Balance 300 ml Exam Constitutional: alert, oriented, other (improved anasarca), well developed Respiratory: clear to auscultation, normal air movement Cardiovascular: regular rate and rhythm Gastrointestinal: non-tender, soft Musculoskeletal: swelling (improving edema ) Extremities: edema (improving b/l LE ), normal pulses, pitting pedal edema (b/ l feet better too ) 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, nl mental status, nl speech, nl strength Results Result Diagram: 01/12/17 0716 01/12/17 0716 Results 24 hrs Laboratory Tests Test 01/12/17 07:16 01/12/17 07:17 01/12/17 11:40 White Blood Count 11.7 #H Red Blood Count 4.60 L Hemoglobin 12.7 L Hematocrit 39.4 L Mean Corpuscular Volume 85.7 Mean Corpuscular Hemoglobin 27.6 L Mean Corpuscular Hemoglobin Concent 32.2 Red Cell Distribution Width 15.0 H Platelet Count 424 H Mean Platelet Volume 9.0 Neutrophils % 67.7 Lymphocytes % 22.8 Monocytes % 5.9 Eosinophils % 2.9 Basophils % 0.3 Nucleated Red Blood Cells % 0.0 Neutrophils # 7.9 H Lymphocytes # 2.7 Monocytes # 0.7 Eosinophils # 0.3 Basophils # 0.0 Nucleated Red Blood Cells # 0.0 Sodium Level 137 Potassium Level 3.5 Chloride Level 102 Carbon Dioxide Level 26 Anion Gap 13 Blood Urea Nitrogen 61 H Creatinine 3.14 H Glucose Level 83 # Calcium Level 8.2 L Total Bilirubin 0.3 Direct Bilirubin 0.00 Indirect Bilirubin 0.3 Aspartate Amino Transf (AST/SGOT) 18 Alanine Aminotransferase (ALT/SGPT) 29 Alkaline Phosphatase 58 Total Protein 4.8 L Albumin 2.3 L Globulin 2.50 Albumin/Globulin Ratio 0.92 Phosphorus Level 4.9 Magnesium Level 2.1 Lab Scanned Report REFERENCE LAB Medications Medications Current Medications Docusate Sodium (Colace) 100 mg DAILY PO Last administered on 01/12/17 08:21; Admin Dose 100 MG; Start 01/07/17 at 09:00 Magnesium Hydroxide (Milk Of Mag) 30 ml BID PRN PO PRN Last administered on 17:40; Admin Dose 30 ML; Start 01/07/17 at 05:30 Acetaminophen (Tylenol Tab) 650 mg Q4H PRN PO PAIN AND OR ELEVATED TEMP; Start 01/07/17 at 07:00 Ondansetron HCl (Zofran Inj) 4 mg Q6H PRN IV NAUSEA AND/OR VOMITING; Start 06/15 at 12:00 Morphine Sulfate (morphine) 2 mg Q4H PRN IV SEVERE PAIN LEVEL 7-10 Last administered on 01/09/17 11:25; Admin Dose 2 MG; Start 01/08/17 at 12:00 Bisacodyl (Dulcolax) 5 mg DAILY PRN PO CONSTIPATION Last administered on 13:02; Admin Dose 5 MG; Start 01/08/17 at 12:00 Hydralazine HCl (Apresoline) 10 mg Q8H PRN IV ELEVATED BLOOD PRESSURE; Start at 12:00 Atorvastatin Calcium (Lipitor) 80 mg HS PO Last administered on 01/11/17 20:27 ; Admin Dose 80 MG; Start 01/09/17 at 21:00 Prednisone (Prednisone) 60 mg DAILY PO Last administered on 01/12/17 08:21; Admin Dose 60 MG; Start 01/10/17 at 12:00 Aspirin (Halfprin) 81 mg DAILY PO Last administered on 01/12/17 08:21; Admin Dose 81 MG; Start 01/10/17 at 12:00 Pantoprazole (Protonix Tab) 40 mg DAILY@06 PO Last administered on 01/12/17 05 :34; Admin Dose 40 MG; Start 01/10/17 at 12:00 Fenofibrate (Tricor) 145 mg DAILY PO Last administered on 01/12/17 08:21; Admin Dose 145 MG; Start 01/11/17 at 13:00 GUICHO HERRMANN Jan 12, 2017 12:34
--- NOTE | 2017-01-12 12:57 | PDOCDIS ---
Discharge Instructions CONDITION Patient Condition: Stable HOME CARE INSTRUCTIONS: Special Diet: RENAL DIET. ACTIVITY: Activity Restrictions: Slowly Increase Activity FOLLOW UP/APPOINTMENTS Follow-up Plan Follow up with PCP within 1 week Follow up with Nephrology, Dr Keyes in 2 t 3 weeks Home Health RN check Check CMP, spot urine protein and creatinine in 2 weeks with results sent to Nephrology GUICHO Choi Jan 12, 2017 12:57
[2017-01-12] MEDS ORDERED: ASPI-664 PO (13:02)
[2017-01-12] MEDS ORDERED: ATOR80TA75 PO (13:02)
[2017-01-12] MEDS ORDERED: FENO145T19 PO (13:02)
[2017-01-12] MEDS ORDERED: PRED20TA PO (13:02)
[2017-01-12] MEDS ORDERED: FURO40TA4 PO (13:02)
[2017-01-12] MEDS ORDERED: CALC667C GTB (13:02)
[2017-01-12] MEDS ORDERED: PANT40TA4 PO (13:02)
== END 2017-01-12 15:24 | disposition home or self-care (01) | DRG 683 ==
LOC: MS4 04:00
PROVIDERS: ADMIT Internal Medicine; ATTEND Internal Medicine
PROC: 0TB13ZX Excision of Left Kidney, Percutaneous Approach, Diagnostic (ICD-10-PCS; principal; 2017-01-09)
DX: N17.9 Acute kidney failure, unspecified (principal); E87.1 Hypo-osmolality and hyponatremia; I12.9 Hypertensive chronic kidney disease with stage 1 through stage 4 chronic kidney disease, or unspecified chronic kidney disease; N18.9 Chronic kidney disease, unspecified; E78.5 Hyperlipidemia, unspecified; N05.1 Unspecified nephritic syndrome with focal and segmental glomerular lesions
CPT/HCPCS: 76775; 77012; 80048; 80053; 80061; 80069; 80076; 81001; 81003; 82550; 83735; 84100; 84155; 84300; 84560; 85025; 85610; 85730; 86021; 86038; 86160; 86162; 86704; 86709; 86803; 87081; 87340; 89190; 93970; J1200; J1650; J1940; J2250; J2270; J3010; J7070; J7512; P9047

== ENCOUNTER 2017-06-13 13:41 | Day surgery (SDC) | payer OTHER ==
[~2017-06-13] VITALS: Ht 160 cm; Wt 61.4 kg
[~2017-06-13 13:41] MED LIST changes: +ASPI-664 PO; +ATOR80TA75 PO; +CALC667C GTB; +FENO145T19 PO; -FURO-110 PO; +FURO40TA4 PO; +PANT40TA4 PO; +PRED20TA PO; -RANI150T5 PO
[2017-06-13 14:51] VITALS: Ht 160 cm; Wt 61.4 kg
[2017-06-13 14:52] VITALS: BP 147/109; RESP 16
[2017-06-13 14:54] LABS: HEMATOCRIT 39.8 % (42.0-52.0); HEMOGLOBIN 13.2 g/dl (14.0-18.0); MEAN CORPUSCULAR HEMOGLOBIN 28.6 pg (29.0-33.0); MEAN CORPUSCULAR HGB CONC 33.2 g/dl (32.0-37.0); MEAN CORPUSCULAR VOLUME 86.1 fl (82.0-101.0); MEAN PLATELET VOLUME 8.7 fl (7.4-10.4); PLATELET COUNT 558 10^3/UL (140-415); RED BLOOD COUNT 4.62 10^6/ul (4.70-6.10); WHITE BLOOD COUNT 6.8 10^3/ul (4.8-10.8)
[2017-06-13] MEDS ORDERED: HEPARIN 1000 UNITS/ML 10 ML INJ ONE (15:19)
[2017-06-13] MEDS ORDERED: CEFAZOLIN 2 GM/50 ML (PMX) 50 ML IVPB ONE (15:19)
[2017-06-13] MEDS ORDERED: LIDOCAINE 1% (MDV) 20 ML INJ ONE (15:19)
[2017-06-13] MEDS ORDERED: SOD CHLORIDE 0.9% 500 ML ONE (15:19)
--- NOTE | 2017-06-13 15:22 | SIPON ---
Date/Time of Note Date/Time of Note DATE: 06/13/17 TIME: 15:21 Operative Report Preoperative Diagnosis ESRD Postoperative Diagnosis same Operation/Procedure Performed R IJ permacath placement Surgeon see signature line mechanic assistant none Anesthesia: other Estimated blood loss: minimal Transfusion Required none Specimen none Grafts/Implants none Complications none WOODY LAWRENCE MD Jun 13, 2017 15:22
[2017-06-13 15:30] VITALS: BP 137/106; PULSE 96; RESP 18
--- NOTE | 2017-06-14 07:41 | OPR ---
DATE OF OPERATION: 06/13/2017 PREOPERATIVE DIAGNOSIS: End-stage renal disease. POSTOPERATIVE DIAGNOSIS: End-stage renal disease. PROCEDURE PERFORMED: Insertion of right internal jugular vein Perm-A-Cath using ultrasound and fluo roscopic guidance. SURGEON: Woody Rayo MD ANESTHESIA: Local anesthesia. ESTIMATED BLOOD LOSS: Minimal. COMPLICATIONS: No intraprocedural complications. INDICATIONS: A 47-year-old gentleman. He is not diabetic. He is hypertensive. 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 He is very edematous. He is going to need to start hemodialysis, was asked by his nep hrologist to place a Perm-A-Cath, so we could initiate hemodialysis. DESCRIPTION OF PROCEDURE: The patient was brought to the laborer pipeline and placed on the table in supine position. Right neck and chest wall were prepped and draped in the usual sterile fashion. I began by insonating the right internal jugular vein. It was widely patent and was very large and dilated . It was easily compressible. No filling defects. I then infiltrated over the vein using about 10 mL of 1% Xylocaine. I used a micropuncture needle to enter the vein under ultrasound guidance and 0.018 wire was inserted through the needle into the vein, then a micropuncture sheath was advanced f rom the wire into the vein. I then advanced 0.035 Amplatz wire down through the heart into the infe rior vena cava. I made a small incision over the wire. I then used another 10 mL of 1% Xylocaine t o anesthetize the tract from going out over the clavicle down to the right anterior chest wall. I t alfred made a small incision below the clavicle and dilated the tract using a hemostat and tunneled the 19 cm tunneled dialysis catheter through the tract leaving the cuff in the mid portion of the tract . I then placed serial dilators over the wire and then placed a large peel away sheath over the wir e and into the right atrium. I then removed the wire and the obturator and placed the end of the ca theter through the peel away sheath and peeled the sheath away leaving the tips in the right atrium. There was good backflow from the catheter. It flushed easily. There was a good lie to the cathet er. There were no kinks anywhere. I left 1.5 mL of heparin in each port then anchored it to the sk in using a 3-0 nylon suture. A 4-0 Monocryl suture was used to close the puncture site in the neck. Sterile dressings were applied and the patient was transferred to the recovery room in stable cond ition. He tolerated the procedure well without any complication. Dictated By: WOODY JAMA/NIRAJ Conf#: [id number] DID#: [id number] CC: HARDEEP PAUL MD; STARR STONE MD; CORINNE PAUL MD;*End*
== END 2017-06-13 18:14 | disposition home or self-care (01) ==
LOC: SDS 13:41
PROVIDERS: ATTEND Surgery Vascular Surgery
DX: I12.0 Hypertensive chronic kidney disease with stage 5 chronic kidney disease or end stage renal disease (principal); N18.6 End stage renal disease
CPT/HCPCS: 36558; 84132; 85025; C1750; J0690; J1644; J7040; Z7610

== ENCOUNTER 2017-10-24 10:04 | Day surgery (SDC) | END 2017-10-24 15:46 | disposition home or self-care (01) ==